=== PATIENT | male | born 1965 | race American Indian/Alaskan Native ===

== ENCOUNTER 2021-12-20 07:38 | Emergency (ER) | payer BC ==
[2021-12-20] MEDS ORDERED: CYCLOBENZAPRINE 10 MG TAB PO ONE (07:59)
[2021-12-20] MEDS ORDERED: IBUPROFEN 800 MG TAB PO ONE (07:59)
[2021-12-20] MEDS ORDERED: methylPREDNISolone ACETATE 80 MG/1 ML INJ IM ONE (07:59)
--- NOTE | 2021-12-20 08:01 | Emergency Department Report ---
ED Back Pain/Injury HPI - General Chief Complaint: Back Pain/Injury Stated Complaint: BACK PAIN Time Seen by Provider: 12/20/21 07:51 Source: patient Limitations: No Limitations - History of Present Illness Initial Comments: 56 yo AA comes to ER with a/c right scapular area pain. Has seen his MD and is being sent to PT-appnt later this month. 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 MD Complaint: back pain -: month(s) Similar Symptoms Previously: Yes Place: home Radiation: none Severity: severe Severity scale (0 -10): 10 Quality: aching Consistency: intermittent Improves With: immobilization Worsens With: movement Associated Symptoms: denies other symptoms - Related Data Previous Rx's Medication Instructions Recorded Last Taken Type Cyclobenzaprine [Flexeril] 10 mg PO TID PRN #10 tablet 12/20/21 Unknown Rx Ibuprofen [Motrin] 800 mg PO Q8HR PRN #30 tablet 12/20/21 Unknown Rx predniSONE [Deltasone] 20 mg PO DAILY #5 tablet 12/20/21 Unknown Rx Allergies Allergy/AdvReac Type Severity Reaction Status Date / Time No Known Allergies Allergy Verified 12/20/21 07:49 ED Review of Systems ROS: Stated complaint: BACK PAIN Other details as noted in HPI Comment: All other systems reviewed and negative ED Past Medical Hx - Past Medical History Previous Medical History?: No - Surgical History Past Surgical History?: No - Family History Family history: no significant - Social History Smoking Status: Never Smoker Substance Use Type: None - Medications Home Medications: Home Medications Medication Instructions Recorded Confirmed Last Taken Type Cyclobenzaprine [Flexeril] 10 mg PO TID PRN #10 tablet 12/20/21 Unknown Rx Ibuprofen [Motrin] 800 mg PO Q8HR PRN #30 tablet 12/20/21 Unknown Rx predniSONE [Deltasone] 20 mg PO DAILY #5 tablet 12/20/21 Unknown Rx ED Physical Exam - General Limitations: No Limitations General appearance: alert, in no apparent distress - Head Head exam: Present: atraumatic, normocephalic - Eye Eye exam: Present: normal appearance - ENT ENT exam: Present: mucous membranes moist - Neck Neck exam: Present: normal inspection - Respiratory Respiratory exam: Present: normal lung sounds bilaterally. Absent: respiratory distress - Cardiovascular Cardiovascular Exam: Present: regular rate, normal rhythm. Absent: systolic murmur, diastolic murmur, rubs, gallop - GI/Abdominal GI/Abdominal exam: Present: soft, normal bowel sounds - Rectal Rectal exam: Present: deferred - Extremities Exam Extremities exam: Present: normal inspection - Back Exam Back exam: Present: normal inspection - Neurological Exam Neurological exam: Present: alert, oriented X3 - Psychiatric Psychiatric exam: Present: normal affect, normal mood - Skin Skin exam: Present: warm, dry, intact, normal color. Absent: rash ED Course Vital Signs 12/20/21 07:45 Temperature 97.9 F Pulse Rate 52 L Respiratory 18 Rate Blood Pressure 176/80 O2 Sat by Pulse 99 Oximetry ED Medical Decision Making - Medical Decision Making has appnt at end of month for PT he has seen his MD who did imaging and they are not sure what the issue is per pt... no new fall/trauma no need for imaging full rom but with pain no cp no sob no systemic symptoms Vital Signs 12/20/21 07:45 Temperature 97.9 F Pulse Rate 52 L Respiratory 18 Rate Blood Pressure 176/80 O2 Sat by Pulse 99 Oximetry medicated for pain dc home with dc plan of care including diet, activity, follow up. I've advised pt to call for an earlier appointment. pt verbalizes understanding of plan of care. - Differential Diagnosis a/c pain Critical care attestation.: If time is entered above; I have spent that time in minutes in the direct care of this critically ill patient, excluding procedure time. ED Disposition Clinical Impression: Back pain Qualifiers: Back pain location: back pain in unspecified location Chronicity: chronic Back pain laterality: right Qualified Code(s): M54.9 - Dorsalgia, unspecified Disposition: 01 HOME / SELF CARE / HOMELESS Is pt being admited?: No Does the pt Need Aspirin: No Condition: Stable Instructions: Chronic Back Pain Additional Instructions: meds as ordered today follow up with atiya call today to move your appnt sooner warm baths and compresses may help stay well hydrated Prescriptions: predniSONE [Deltasone] 20 mg PO DAILY #5 tablet Cyclobenzaprine [Flexeril] 10 mg PO TID PRN #10 tablet PRN Reason: Muscle Spasm Ibuprofen [Motrin] 800 mg PO Q8HR PRN #30 tablet PRN Reason: Pain, Moderate (4-6) Referrals: SANDIE MCDANIEL MD [Staff Physician] - 3-5 Days Time of Disposition: 08:00
[2021-12-20 09:16] VITALS: BP 122/64
== END 2021-12-20 09:14 | disposition home or self-care (01) ==
LOC: ED 07:38
DX: M54.9 Dorsalgia, unspecified (principal); Z79.899 Other long term (current) drug therapy
CPT/HCPCS: 96372; 99282; J1040